=== PATIENT | female | born 1955 | race Caucasian/White ===

== ENCOUNTER 2017-11-14 06:49 | Inpatient (IN) | payer BC ==
[~2017-11-14 06:49] MED LIST: ACETAMINOPHEN 1,000 MG/100 ML BTL IV ONE; CLINDAMYCIN 600MG/50ML PREMIX 600 MG/50 ML BAG IVPB ONE; FAMOTIDINE 20MG TABLET PO ONE; MECLIZINE 25 MG TABLET PO ONE; METOCLOPRAMIDE 10 MG TABLET PO ONE
[2017-11-14] MEDS ORDERED: PNEUM 23-VAL ADULT IM ONE (12:10)
[2017-11-14] MEDS ORDERED: ZOLPIDEM TARTRATE 5 MG TABLET PO PRN (12:30)
[2017-11-14] MEDS ORDERED: SENNOSIDES/DOCUSATE SODIUM UD CAPSULE PO PRN (12:30)
[2017-11-14] MEDS ORDERED: AL HYDROX/MAG HYDROX 30ML UD PO PRN (12:30)
[2017-11-14] MEDS ORDERED: OXYCODONE HCL 5 MG TABLET PO PRN (12:30)
[2017-11-14] MEDS ORDERED: DIPHENHYDRAMINE HCL 25 MG CAPSULE PO PRN (12:30)
[2017-11-14] MEDS ORDERED: TRANEXAMIC ACID 1,000 MG in 0.9 % SODIUM CHLORIDE 100ML 100 ML IVPB ONE (12:30)
[2017-11-14] MEDS ORDERED: ONDANSETRON HCL IV 4 MG/2 ML VIAL IVP PRN (12:30)
[2017-11-14] MEDS ORDERED: METOCLOPRAMIDE HCL 10 MG/2 ML VIAL IVP PRN (12:30)
[2017-11-14] MEDS ORDERED: MAGNESIUM HYDROXIDE 30 ML UDC PO PRN (12:30)
[2017-11-14] MEDS: HYDROCODONE/APAP 10/325 TABLET PO PRN (12:47)
[2017-11-14] MEDS ORDERED: TRANEXAMIC ACID 1,000 MG/10 ML ML IV ONE (12:59)
[2017-11-14] MEDS: HYDROMORPHONE HCL 2 MG/ML VIAL IV PRN ×3 (14:03→23:35)
[2017-11-14] MEDS ORDERED: PANTOPRAZOLE SODIUM 40 MG TABLET PO PRN (14:06)
[2017-11-14] MEDS ORDERED: PATIENT OWN MED: PROAIR HFA INH PRN (14:07)
[2017-11-14] MEDS ORDERED: METOCLOPRAMIDE HCL 10 MG/2 ML VIAL IVP ONE (15:13)
[2017-11-14] MEDS ORDERED: FENTANYL PF 100MCG/2ML VIAL IV ONE (15:13)
[2017-11-14] MEDS ORDERED: MIDAZOLAM HCL 2MG/2ML VIAL IV ONE (15:13)
[2017-11-14] MEDS ORDERED: PROPOFOL 10 MG/ML VIAL IV ONE (15:13)
[2017-11-14] MEDS ORDERED: ONDANSETRON HCL IV 4 MG/2 ML VIAL IVP ONE (15:13)
[2017-11-14] MEDS ORDERED: HYDROMORPHONE HCL 2 MG/ML VIAL IV ONE (15:13)
[2017-11-14] MEDS: ACETAMINOPHEN 1,000 MG/100 ML BTL IV SCH ×2 (15:21→20:41)
[2017-11-14] MEDS: PATIENT OWN MED: MONTELUKAST 10 MG PO SCH ×2 (16:39→20:17)
[2017-11-14] MEDS: CLINDAMYCIN 600MG/50ML PREMIX 600 MG/50 ML BAG IVPB SCH (16:53)
[2017-11-14] MEDS: OXYCODONE HCL 5 MG TABLET PO PRN ×2 (17:00→21:23)
[2017-11-14] MEDS ORDERED: VENLAFAXINE 225 MG PO SCH (18:00)
[2017-11-14] MEDS ORDERED: LORATADINE 10 MG TABLET PO SCH (18:00)
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
[2017-11-14] MEDS: RINGERS SOLUTION,LACTATED 1,000 ML IV SCH (20:18)
[2017-11-14] MEDS: ASPIRIN 325 MG TAB ENTERIC-COATED PO SCH (21:24)
[2017-11-14] MEDS ORDERED: PRAMIPEXOLE DI-HCL 0.25 MG TABLET PO SCH (22:00)
[2017-11-15] MEDS: RINGERS SOLUTION,LACTATED 1,000 ML IV SCH ×2 (00:35→05:34)
[2017-11-15] MEDS: CLINDAMYCIN 600MG/50ML PREMIX 600 MG/50 ML BAG IVPB SCH ×2 (00:46→08:41)
[2017-11-15] MEDS: OXYCODONE HCL 5 MG TABLET PO PRN ×3 (01:29→10:03)
[2017-11-15] MEDS: ACETAMINOPHEN 1,000 MG/100 ML BTL IV SCH (03:02)
[2017-11-15] MEDS: HYDROMORPHONE HCL 2 MG/ML VIAL IV PRN (08:38)
[2017-11-15] MEDS ORDERED: FLU VAC QS 2017-18 (INPT, 6MO+) 60MCG/0.5ML IM ONE (09:11)
[2017-11-15] MEDS: ASPIRIN 325 MG TAB ENTERIC-COATED PO SCH (10:02)
[2017-11-15 10:03] LABS: HEMOGLOBIN 11.6 gm/dl (11.6-16.0); MEAN CELL VOLUME 95.2 fl (81-97); MEAN CORPUSCULAR HGB CONC 32.2 g/dl (32-36); PLATELET COUNT 290 K/uL (130-400); RED BLOOD COUNT 3.78 M/uL (3.80-5.40); RED CELL DISTRIBUTION WIDTH 12.3 % (11.5-14.5)
[2017-11-15 10:10] LABS: PROTHROMBIN TIME (PATIENT) 10.5 SECONDS (9.5-12.1)
[2017-11-15 10:11] LABS: MEAN CORPUSCULAR HEMOGLOBIN 30.6 pg (27-33)
--- NOTE | 2017-11-15 12:01 | Physical Therapy Tx Note ---
Physical Therapy Tx Note - Treatment Note Tolerated: Fair Total Time Spent With Patient: 20 Physical Therapy Tx Note: Detail (The patient was sitting in her chair upon arrival. The patient had complaints of increased pain in her knee which she placed at 7/10. The patient wanted to continue with therapy however. The patient required CGAx1 for sit to stand, and needed verbal cues to push up from her chair, rather than pull with her walker. The patient then ambulated with a 2WW and CGA x1 from the chair, which was at bedside, to just outside of her room before complaining of increased pain (about 11 feet). While walking, the patient did not bear weight on the surgical side, required verbal cues for walker placement as her foot would continually clear the front legs of the walker. She was able to walk again from the middle of the hallway to her bed with CGA x1 and the same verbal cues used prior. The patient was returned to bed , where her HEP was reviewed. She was able to complete 5 reps of the following exercises: Quad sets, glut.sets, hamstring sets, ankle pumps and SLR. The patient was able to demonstrate each exercise. She was kept in her bed supine to rest, with her call light in reach.) Physical Therapy Problem List: Detail (1) LE weakness 2) LE ROM restriction 3) Assistance required with transfers 4) Stairs not assessed) Physical Therapy Goals: 1) Pt. will independently ambulate household distances with AD safely and not require verbal cues for appropriate use. 2) Pt. will independently ascend and descend 3 steps with or without AD safely. 3) Pt. will demonstrate independence with bed mobility and transfers without verbal cues. 4) Pt. will verbalize good understanding of HEP, precautions, and signs of infection. Prognosis: Moderate Physical Therapy Plan: Pt. is to be seen 1-2x per day for inpatient PT until goals met for safe D/C to home environment.
[2017-11-15] MEDS ORDERED: ACETAMINOPHEN 325 MG TAB PO PRN (12:30)
[2017-11-15] MEDS: HYDROCODONE/APAP 10/325 TABLET PO PRN (12:43)
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
--- NOTE | 2017-11-15 13:10 | Operative Note ---
DATE OF SURGERY: 11/14/2017 Surgeon: Gerardo Paul DO Referring physician: Laith Castro DO PREOPERATIVE DIAGNOSIS: Primary osteoarthritis of the left knee. POSTOPERATIVE DIAGNOSIS: Primary osteoarthritis of the left knee. OPERATION: Left total knee arthroplasty. Anesthesia: Spinal. PROCEDURE: This 62-year-old female was taken to the operating room and placed in the supine position on the operating room table where spinal anesthesia was induced. The left lower extremity was then elevated. It was prepped with Hibiclens and draped in the usual sterile fashion. It was exsanguinated and the tourniquet inflated to 300 mmHg. All scrubbed personnel wore personal isolation suits. An anterior longitudinal midline incision was made, followed by a medial parapatellar arthrotomy incision. An intracondylar drill hole was made for the intramedullary alignment preethi and a 5 degree valgus 9 mm cut was made in the distal femur and the wafer of bone was removed. A sizing jig was affixed and a size 60 was seen to be the appropriate size. Subsequently, the 4 in 1 cutting block was pinned in 3 degrees of external rotation and the appropriate cuts were made. We then directed our attention to the proximal tibia and an extramedullary alignment guide was used to cut the proximal tibia, referencing a 10 mm cut off the lateral tibial plateau. The cut did not quite get us below the subchondral bone medially, therefore an additional 2 mm was taken, and the wafer of bone was removed after the appropriate alignment had been assured. A 3 degree posterior slope cut was made. We then removed the remnants of the menisci and osteophytes from the posterior aspect of the joint. The tibia was sized with a size 67 and a stem punch was used. The patella was cut and restored to anatomic height with a 34 x 7.8 mm trial. Subsequently, the trial components were inserted and a 12 mm bearing was seen to be the appropriate size, which gave us excellent stability throughout the full range of motion. The joint was then copiously irrigated after all trial components had been removed. Exparel was injected into the posterior, medial, and lateral corners of the joint and all bony surfaces were dried and all components were cemented into place, with the excess cement being removed after the insertion of each component. Initially, the tibia base plate was cemented, followed by the insertion of the tibial bearing, and subsequently the femoral component, and finally the patella. Once the cement had hardened, the knee was again taken through range of motion and found to be stable. The remainder of the Exparel was injected into the periosteum and joint capsule, the proximal tibia, and distal femur. A drain was placed through a separate stab incision and the arthrotomy incision was closed with #2 Vicryl. The subcutaneous tissue was closed with 0 Vicryl, the skin was stapled. Sterile dressings with a Polar Care was applied. The patient was taken to the recovery room in satisfactory condition. GROSS PATHOLOGY: This patient had very severe full thickness articular cartilage loss, over both sides of the medial compartment and the tibial plateau of the lateral compartment. The patella also demonstrated severe degenerative change. Final components inserted were a [employer] Vanguard size 60 cruciate retaining femur, a 67 tibia base plate, a 12 mm anterior stabilized E1 bearing, and a 34 x 7.8 mm patella was used. YADY
--- NOTE | 2017-11-15 13:56 | Physical Therapy Tx Note ---
Physical Therapy Tx Note - Treatment Note Tolerated: Good Total Time Spent With Patient: 25 Physical Therapy Tx Note: Detail (Pt was sitting edge of bed with nursing at side. Pt states wants to go home today. Pt was willing to complete gait training and stairs. Pt ambulated with contact guard assist with front wheeled walker x 65 ft. Pt required verbal cues for foot placement in walker and weight bearing through surgical leg. Pt was able to complete stairs with walker and railing with contact guard assist and verbal cueing. Pt required one rest period during ambulation when returning back to bed. Pt transferred to sit at edge of bed and then supine. Pt needed min assist x 1 to lift leg into bed. Pt was given nursing call button and the ice placed on left knee. Pt completed and met goals of PT.) Physical Therapy Problem List: Detail (1) LE weakness 2) LE ROM restriction 3) Assistance required with transfers 4) Stairs not assessed) Physical Therapy Goals: 1) Pt. will independently ambulate household distances with AD safely and not require verbal cues for appropriate use. 2) Pt. will independently ascend and descend 3 steps with or without AD safely. 3) Pt. will demonstrate independence with bed mobility and transfers without verbal cues. 4) Pt. will verbalize good understanding of HEP, precautions, and signs of infection. Prognosis: Good Physical Therapy Plan: Pt. is to be Discharged to home from PT today and will start outpatient PT on 11/18/17.
--- NOTE | 2017-11-18 09:10 | Discharge Summary ---
DATE OF ADMISSION: 11/14/2017 DATE OF DISCHARGE: 11/15/2017 ADMITTING DIAGNOSIS: Osteoarthritis of the left knee. DISCHARGE DIAGNOSIS: Osteoarthritis of the left knee. OPERATIVE PROCEDURE: Elective left total knee arthroplasty. DESCRIPTION: This 62-year-old female was admitted to the hospital for elective total knee arthroplasty and tolerated the operative procedure well. She progressed satisfactorily and was ready for discharge. The drain had been removed. The patient will have outpatient physical therapy. She was instructed to wear her HI hose during the day and remove them at night. She will take aspirin 325 mg daily. I have given her a prescription for Percocet 7.5/325 one or two every 6 hours as necessary for pain. She was given 80. Routine wound care instructions were given. She will follow up in the clinic in 2 weeks. Should she have any problems prior to being seen, she was instructed to call my office. YADY
== END 2017-11-15 14:05 | disposition home or self-care (01) | DRG 470 ==
LOC: MEDSURG 06:49
PROVIDERS: ADMIT Orthopaedic Surgery; ATTEND Orthopaedic Surgery
PROC: 0SRD069 Replacement of Left Knee Joint with Oxidized Zirconium on Polyethylene Synthetic Substitute, Cemented, Open Approach (ICD-10-PCS; principal; 2017-11-14 09:00)
DX: M17.12 Unilateral primary osteoarthritis, left knee (principal); I10 Essential (primary) hypertension; Z72.0 Tobacco use
CPT/HCPCS: 85025; 85610; 90686; 90732; 97116; 97165; 97530; J2405; J2765; J7120